=== PATIENT | female | born 1970 | race Two or more races ===

== ENCOUNTER 2017-12-07 07:52 | Outpatient (CLI) | payer OTHER ==
[~2017-12-07 07:52] MED LIST: PRENATAL1 TAB PO
== END 2017-12-07 08:02 | disposition home or self-care (01) ==
LOC: LAB 07:52
DX: Z00.00 Encounter for general adult medical examination without abnormal findings (principal); I10 Essential (primary) hypertension; E03.8 Other specified hypothyroidism; E78.2 Mixed hyperlipidemia; N39.0 Urinary tract infection, site not specified; Z11.4 Encounter for screening for human immunodeficiency virus [HIV]; Z12.11 Encounter for screening for malignant neoplasm of colon; E55.9 Vitamin D deficiency, unspecified; Z21 Asymptomatic human immunodeficiency virus [HIV] infection status; R79.9 Abnormal finding of blood chemistry, unspecified; R79.89 Other specified abnormal findings of blood chemistry

== ENCOUNTER → 2018-08-24 | Outpatient (CLI) | payer OTHER | END | disposition home or self-care (01) | LOC: LAB 11:50 | DX: J11.1 Influenza due to unidentified influenza virus with other respiratory manifestations (principal); J06.9 Acute upper respiratory infection, unspecified ==

== ENCOUNTER 2019-06-13 16:10 | Outpatient (CLI) | payer OTHER | END 2019-06-13 16:14 | disposition home or self-care (01) | LOC: RAD 16:10 | DX: M54.2 Cervicalgia (principal) ==

== ENCOUNTER 2019-06-14 06:51 | Outpatient (CLI) | payer OTHER | END 2019-06-14 15:00 | disposition home or self-care (01) | LOC: LAB 06:51 | DX: E78.49 Other hyperlipidemia (principal); E55.9 Vitamin D deficiency, unspecified; R51 Headache; Z00.00 Encounter for general adult medical examination without abnormal findings; J06.9 Acute upper respiratory infection, unspecified ==

== ENCOUNTER 2019-07-02 14:42 | Outpatient (CLI) | payer OTHER | END 2019-07-02 15:10 | disposition home or self-care (01) | LOC: MAMO-SONO 14:42 | DX: Z12.31 Encounter for screening mammogram for malignant neoplasm of breast (principal); Z87.898 Personal history of other specified conditions; N63.10 Unspecified lump in the right breast, unspecified quadrant; N63.20 Unspecified lump in the left breast, unspecified quadrant; N64.89 Other specified disorders of breast; N64.59 Other signs and symptoms in breast ==

== ENCOUNTER 2019-07-09 06:45 | Outpatient (CLI) | payer OTHER | END 2019-07-09 06:47 | disposition home or self-care (01) | LOC: LAB 06:45 | DX: R79.89 Other specified abnormal findings of blood chemistry (principal); Z00.00 Encounter for general adult medical examination without abnormal findings; I10 Essential (primary) hypertension; E03.8 Other specified hypothyroidism; Z11.4 Encounter for screening for human immunodeficiency virus [HIV]; E55.9 Vitamin D deficiency, unspecified; Z21 Asymptomatic human immunodeficiency virus [HIV] infection status ==

== ENCOUNTER 2019-07-15 15:42 | Outpatient (CLI) | payer OTHER | END 2019-07-15 16:35 | disposition home or self-care (01) | LOC: LAB 15:42 | DX: N62 Hypertrophy of breast (principal); I10 Essential (primary) hypertension; J44.9 Chronic obstructive pulmonary disease, unspecified ==

== ENCOUNTER 2019-08-18 20:04 | Emergency (ER) | payer OTHER ==
[~2019-08-18] VITALS: Ht 157.5 cm; Wt 58.5 kg
[2019-08-18] MEDS ORDERED: CELEBREX100 MG (20:30)
== END 2019-08-18 22:09 | disposition home or self-care (01) ==
LOC: ER 20:04
DX: R10.11 Right upper quadrant pain (principal); K59.09 Other constipation

== ENCOUNTER 2019-10-15 16:29 | Outpatient (CLI) | payer OTHER ==
[~2019-10-15 16:29] MED LIST changes: +CELEBREX100 MG
== END 2019-10-15 16:34 | disposition home or self-care (01) ==
LOC: LAB 16:29
DX: J11.1 Influenza due to unidentified influenza virus with other respiratory manifestations (principal); R05 Cough

== ENCOUNTER 2020-11-20 10:06 | Emergency (ER) | payer OTHER ==
[~2020-11-20] VITALS: Ht 157.5 cm; Wt 57.6 kg
[2020-11-20] MEDS ORDERED: ZANAFLEX4 M1 PO (12:00)
[2020-11-20] MEDS ORDERED: KETO10TA2 PO (12:00)
== END 2020-11-20 12:20 | disposition home or self-care (01) ==
LOC: ER 10:06
DX: M25.511 Pain in right shoulder (principal)

== ENCOUNTER → 2020-11-25 | Outpatient (CLI) | payer OTHER ==
[~2020-11-25] MED LIST changes: +KETO10TA2 PO; +ZANAFLEX4 M1 PO
== END | disposition home or self-care (01) ==
LOC: MRI 09:54
PROVIDERS: ATTEND Physical Medicine & Rehabilitation
DX: M25.511 Pain in right shoulder (principal); M25.512 Pain in left shoulder
CPT/HCPCS: 73221